=== PATIENT | male | born 1980 | race Caucasian/White ===

== ENCOUNTER 2022-08-23 21:05 | Emergency (ER) | payer SELFPAY ==
[~2022-08-23] VITALS: Ht 188 cm; Wt 119.7 kg
[2022-08-23 22:28] VITALS: BP 172/97
[2022-08-23] MEDS ORDERED: TDAP [DIPH/PERTUSSIS/TET] 0.5 ML VIAL IM ONE ×2 (22:45→23:00)
[2022-08-23] MEDS ORDERED: AMOX-430 PO ×2 (22:47→22:59)
--- NOTE | 2022-08-23 23:03 | NUR ---
Patient discharged to home in stable condition. Written and verbal after care instructions given. Patient verbalizes understanding of instruction.
== END 2022-08-23 23:03 | disposition home or self-care (01) ==
LOC: ER 21:34
DX: S91.332A Puncture wound without foreign body, left foot, initial encounter (principal); W45.0XXA Nail entering through skin, initial encounter; Y93.89 Activity, other specified; Y92.89 Other specified places as the place of occurrence of the external cause; Y99.8 Other external cause status
CPT/HCPCS: 90715